=== PATIENT | male | born 1995 | race Caucasian/White ===

== ENCOUNTER 2024-09-23 07:38 | Emergency (ER) | payer OTHER ==
[~2024-09-23] VITALS: Ht 175.3 cm; Wt 80.9 kg
[2024-09-23] MEDS ORDERED: FINA5TAB2 PO (07:55)
[2024-09-23] MEDS ORDERED: CREATINE (07:55)
[2024-09-23] MEDS ORDERED: vitamin D (07:55)
[2024-09-23] MEDS ORDERED: IBUP200T46 PO (07:55)
[2024-09-23] MEDS: NS (Normal Saline) 0.9% 1,000 ML IV ONE (08:54)
[2024-09-23 09:09] LABS: BASO % 0.7 % (0.0-1.0); EOS # 0.2 10^3/uL (0.0-0.5); EOS % 5.3 % (0.0-3.0); HEMATOCRIT 43.4 % (42.0-52.0); HEMOGLOBIN 14.5 g/dl (13.5-17.5); LYMPH # 1.5 10^3/uL (1.5-5.0); LYMPH % 33.4 % (24.0-44.0); MEAN CORPUSCULAR HEMOGLOBIN 30.4 pg (27.0-33.0); MEAN CORPUSCULAR HGB CONC 33.4 g/dl (32.0-36.5); MONO # 0.4 10^3/uL (0.0-0.8); MONO % 9.2 % (2.0-8.0); NEUTROPHILS # 2.2 10^3/uL (1.5-8.5); NEUTROPHILS % 51.2 % (36.0-66.0); PLATELET COUNT, AUTOMATED 235 10^3/uL (150-450); RED BLOOD COUNT 4.77 10^6/uL (4.30-6.10); WHITE BLOOD COUNT 4.3 10^3/uL (4.0-10.0)
[2024-09-23 09:41] LABS: ALBUMIN 3.6 G/DL (3.2-5.2); ALKALINE PHOSPHATASE 36 U/L (40-129); ALT/SGPT 87 U/L (7.0-40); AST/SGOT 42 U/L (<34); BILIRUBIN,DIRECT 0.2 MG/DL (<0.4); BILIRUBIN,TOTAL 0.4 MG/DL (0.3-1.2); BLOOD UREA NITROGEN 12 MG/DL (9-23); CALCIUM LEVEL 9.4 MG/DL (8.5-10.1); CARBON DIOXIDE LEVEL 26 MMOL/L (20-31); CHLORIDE LEVEL 109 MMOL/L (98-107); CREATININE FOR GFR 0.92 MG/DL (0.70-1.30); GLOMERULAR FILTRATION RATE > 60.0 (>60); GLUCOSE, FASTING 80 MG/DL (60-100); POTASSIUM SERUM 4.8 MMOL/L (3.5-5.1); SODIUM LEVEL 141 MMOL/L (136-145); TOTAL PROTEIN 6.9 G/DL (5.7-8.2)
[2024-09-23 09:44] LABS: APPEARANCE, URINE CLEAR (CLEAR); BACTERIA, URINE AUTO NEGATIVE (NEGATIVE); BILIRUBIN, URINE AUTO NEGATIVE (NEGATIVE); BLOOD, URINE BLOOD NEGATIVE (NEGATIVE); COLOR, URINE STRAW (YELLOW); GLUCOSE, URINE (UA) AUTO NEGATIVE (NEGATIVE); KETONE, URINE AUTO NEGATIVE (NEGATIVE); LEUKOCYTE ESTERASE, URINE AUTO NEGATIVE (NEGATIVE); NITRITE, URINE AUTO NEGATIVE (NEGATIVE); PROTEIN, URINE AUTO NEGATIVE (NEGATIVE); RBC, URINE AUTO 0 /HPF (0-3); SPECIFIC GRAVITY URINE AUTO 1.008 (1.002-1.035); SQUAMOUS EPITHELIAL CELL UR AU 0 /HPF (0-6); UROBILINOGEN, URINE AUTO 0.2 mg/dL (0.0-2.0); WBC, URINE AUTO 0 /HPF (0-3)
[2024-09-23 09:50] LABS: CPK CREATINE PHOSPHOKINASE 302 U/L (46-171)
[2024-09-23] MEDS: KETOROLAC 30 MG/ML 1ML VIAL IV ONE (10:16)
[2024-09-23 10:59] LABS: RSV AMPLIFICATION NEGATIVE (NEGATIVE)
[2024-09-23 12:27] VITALS: BP 129/66; TEMP 97.8; O2SAT 99
== END 2024-09-23 12:31 | disposition home or self-care (01) ==
LOC: M ED 07:38
DX: R53.81 Other malaise (principal); R53.83 Other fatigue; N28.89 Other specified disorders of kidney and ureter; Z79.1 Long term (current) use of non-steroidal anti-inflammatories (NSAID)
CPT/HCPCS: 76775; 80048; 80076; 81001; 82550; 83735; 85025; 87631; 96361; 96374; 99284; J1885